=== PATIENT | male | born 1955 | race Caucasian/White ===

== ENCOUNTER 2019-11-05 01:16 | Emergency (ER) | payer OTHER ==
[2019-11-05 02:34] LABS: Absolute Lymphocytes (CBC) 2.4 K/uL (0.7-4.9); Hematocrit 45.9 % (39.6-49.0); Lymphocytes % 26.5 % (15.3-44.8); MPV 8.8 fL (7.6-11.3); RBC Red Blood Cell Count 5.24 M/uL (4.33-5.43)
[2019-11-05] MEDS ORDERED: KETOROLAC 30 MG/ML INJ ONE (02:39)
[2019-11-05] MEDS ORDERED: CLINDAMYCIN 900MG/D5W 900 MG/50 ML IVPB IV ONE (02:39)
[2019-11-05] MEDS ORDERED: NA CHLORIDE 0.9% 500 ML ONE (02:39)
[2019-11-05 03:01] LABS: Uric Acid 5.1 mg/dL (3.5-7.2)
--- NOTE | 2019-11-05 03:12 | EDPHYS ---
Physician Documentation [facility] Name: Marco Winters Age: 64 yrs Sex: Male : 1955 Arrival Date: 11/05/2019 Time: 01:19 Bed 16 Private MD: ED Physician Steven White HPI: 11/04 01:40 This 64 yrs old Male presents to ER via Ambulatory with complaints of Insect cp Bite. 01:40 The patient or guardian complains of pain, swelling, tenderness, erythema. cp 01:40 The complaints affect the right elbow. Context: resulted from possible insect bite. cp Onset: The symptoms/episode began/occurred 2 month(s) ago. Treatment prior to arrival includes: no previous treatment. Associated signs and symptoms: Pertinent negatives: decreased range of motion, fever, numbness. Severity of symptoms: in the emergency department the symptoms are unchanged, despite home interventions. Historical: - Allergies: 01:22 No Known Allergies; jb4 - Home Meds: 01:22 None [Active]; jb4 - PMHx: 01:22 Hernia; jb4 - PSHx: 01:22 Hernia repair; AMIE knee replacement; Hydrocelectomy; back; jb4 - Immunization history:: Adult Immunizations up to date. - Social history:: Smoking status: Patient reports the use of cigarette tobacco products, smokes one-half pack cigarettes per day, Patient/guardian denies using alcohol, street drugs. ROS: 01:45 MS/extremity: Positive for erythema, pain, swelling, tenderness, of the right elbow. cp 01:45 Constitutional: Negative for body aches, chills, fever. cp 01:45 Cardiovascular: Negative for chest pain. 01:45 Respiratory: Negative for cough, shortness of breath, wheezing. 01:45 Abdomen/GI: Negative for abdominal pain, nausea, vomiting, and diarrhea. 01:45 Neuro: Negative for altered mental status, headache, weakness. 01:45 All other systems are negative. Exam: 01:50 Constitutional: The patient appears in no acute distress, alert, awake, non-toxic, well cp developed, well nourished. 01:50 Head/Face: Normocephalic, atraumatic. cp 01:50 Cardiovascular: Rate: normal. 01:50 Respiratory: the patient does not display signs of respiratory distress, Respirations: normal. 01:50 Musculoskeletal/extremity: Extremities: grossly normal except: noted in the right elbow: erythema, pain, swelling, tenderness, ROM: full passive range of motion, in the right elbow, Perfusion: the extremity is normally perfused throughout. Vital Signs: 01:22 BP 138 / 63; Pulse 65; Resp 16; Temp 98.4(O); Pulse Ox 98% on R/A; Weight 108.86 kg jb4 (R); Height 6 ft. 3 in. (190.50 cm) (R); Pain 8/10; 02:30 BP 114 / 60; Pulse 58; Resp 16; Pulse Ox 95% on R/A; jb4 01:22 Body Mass Index 30.00 (108.86 kg, 190.50 cm) jb4 MDM: 01:29 Patient medically screened. cp 02:00 Differential diagnosis: abscess, bursitis, cellulitis, insect bite. cp 03:10 Data reviewed: vital signs, nurses notes, lab test result(s), and as a result, I will cp discharge patient. 03:10 Counseling: I had a detailed discussion with the patient and/or guardian regarding: the cp historical points, exam findings, and any diagnostic results supporting the discharge/admit diagnosis, radiology results, the need for outpatient follow up, a family practitioner, to return to the emergency department if symptoms worsen or persist or if there are any questions or concerns that arise at home. Response to treatment: the patient's symptoms have mildly improved after treatment, and as a result, I will discharge patient. 11/04 01:36 Order name: CBC with Diff; Complete Time: 02:44 cp 11/04 02:44 Interpretation: Normal except: RDW 16.0. cp 11/04 01:36 Order name: BMP; Complete Time: 03:03 cp 11/04 03:03 Interpretation: Normal except: GLUC 113; GFR 87. cp 11/04 01:36 Order name: Uric Acid; Complete Time: 03:03 cp 11/04 03:03 Interpretation: Within normal limits: URIC 5.1. cp 11/04 01:36 Order name: Procalcitonin; Complete Time: 03:17 cp 11/04 03:17 Interpretation: Reviewed. cp 11/04 01:36 Order name: Blood Culture Adult (2) cp 11/04 01:36 Order name: IV; Complete Time: 02:52 cp Administered Medications: 01:37 CANCELLED (Physician Discretion): NS 0.9% 1000 ml IV at 1 bolus Per protocol; 1000 mL cp bolus 02:35 Drug: TORadol - Ketorolac 15 mg Route: IVP; Site: left hand; jb4 03:00 Follow up: Response: No adverse reaction; Pain is decreased jb4 02:35 Drug: NS 0.9% 500 ml Route: IV; Rate: bolus; Site: left hand; jb4 03:05 Follow up: Response: No adverse reaction; IV Status: Completed infusion jb4 02:37 Drug: Clindamycin 900 mg Route: IVPB; Infused Over: 30 mins; Site: left hand; jb4 03:07 Follow up: Response: No adverse reaction; IV Status: Completed infusion jb4 Disposition: 03:15 Chart complete. cp Disposition: 11/05/19 03:11 Discharged to Home. Impression: Cellulitis of right upper limb - elbow. - Condition is Stable. - Discharge Instructions: Cellulitis, Adult, Elbow Bursitis. - Prescriptions for Clindamycin HCl 300 mg Oral Capsule - take 1 capsule by ORAL route every 6 hours for 10 days; 40 capsule. Tramadol 50 mg Oral Tablet - take 1 tablet by ORAL route every 8 hours as needed; 12 tablet. Bactrim DS 800- 160 mg Oral Tablet - take 1 tablet by ORAL route every 12 hours for 10 days; 20 tablet. - Medication Reconciliation Form, Thank You Letter, Antibiotic Education, Prescription Opioid Use form. - Follow up: Private Physician; When: 1 - 2 days; Reason: Recheck today's complaints. - Problem is new. - Symptoms have improved. Addendum: 11/06/2019 04:30 Co-signature as Attending Physician, Steven White MD I agree with the assessment and t w4 plan of care. Signatures: Dispatcher [employer] EDMS Chan Ya PA PA cp Bryson, James, TOMAS RN jb4 Steven White MD MD tw4 Corrections: (The following items were deleted from the chart) 11/04 01:37 01:36 NS 0.9% 1000 ml IV at 1 bolus Per protocol; 1000 mL bolus ordered. cp cp 03:35 03:11 11/05/2019 03:11 Discharged to Home. Impression: Cellulitis of right upper limb - jb4 elbow. Condition is Stable. Prescriptions for Clindamycin HCl 300 mg Oral Capsule - take 1 capsule by ORAL route every 6 hours for 10 days; 40 capsule, Tramadol 50 mg Oral Tablet - take 1 tablet by ORAL route every 8 hours as needed; 12 tablet, Bactrim DS 800-160 mg Oral Tablet - take 1 tablet by ORAL route every 12 hours for 10 days; 20 tablet. and Forms are Medication Reconciliation Form, Thank You Letter, Antibiotic Education, Prescription Opioid Use. Follow up: Private Physician; When: 1 - 2 days; Reason: Recheck today's complaints. Problem is new. Symptoms have improved. cp
--- NOTE | 2019-11-05 03:12 | ER ---
Nurse's Notes [facility] Name: Marco Winters Age: 64 yrs Sex: Male : 1955 Arrival Date: 11/05/2019 Time: : Bed 16 Private MD: Diagnosis: Cellulitis of right upper limb-elbow Presentation: 11/04 01:22 Chief complaint: Patient states: A month ago I thought I had a bite on my right elbow. jb4 It started out as a small cluster of white pimples. Now it is the size of my elbow. It is getting harder, and larger. The pain is now radiating up my arm. Its a burning pain. 01: Coronavirus screen: Client denies travel out of the [place] in the last 14 days. At this jb4 time, the client does not indicate any symptoms associated with coronavirus-19. Ebola Screen: No symptoms or risks identified at this time. Initial Sepsis Screen: Does the patient meet any 2 criteria? No. Patient's initial sepsis screen is negative. Does the patient have a suspected source of infection? No. Patient's initial sepsis screen is negative. Risk Assessment: Do you want to hurt yourself or someone else? Patient reports no desire to harm self or others. Onset of symptoms was October 04, 2019. Transition of care: patient was not received from another setting of care. 01: Method Of Arrival: Ambulatory jb4 Acuity: DIANDRA 4 jb4 Historical: - Allergies: : No Known Allergies; jb4 - Home Meds: : None [Active]; jb4 - PMHx: : Hernia; jb4 - PSHx: : Hernia repair; AMIE knee replacement; Hydrocelectomy; back; jb4 - Immunization history:: Adult Immunizations up to date. - Social history:: Smoking status: Patient reports the use of cigarette tobacco products, smokes one-half pack cigarettes per day, Patient/guardian denies using alcohol, street drugs. Screenin: Abuse screen: Denies threats or abuse. Nutritional screening: No deficits noted. jb4 Tuberculosis screening: No symptoms or risk factors identified. Fall Risk None identified. Assessment: : General: Appears in no apparent distress. uncomfortable, Behavior is calm, cooperative, jb4 appropriate for age. Pain: Complains of pain in right elbow Pain radiates to anterior aspect of right shoulder Pain currently is 8 out of 10 on a pain scale. Quality of pain is described as burning, Pain began 1 month ago Is continuous. Neuro: Level of Consciousness is awake, alert, obeys commands, Oriented to person, place, time, situation. Cardiovascular: Patient's skin is warm and dry. Respiratory: Airway is patent Respiratory effort is even, unlabored, Respiratory pattern is regular, symmetrical. GI: No signs and/or symptoms were reported involving the gastrointestinal system. : No signs and/or symptoms were reported regarding the genitourinary system. EENT: No signs and/or symptoms were reported regarding the EENT system. Derm: Skin is intact, Skin is pink, warm \T\ dry. There is a reddened area noted to the posterior right elbow. The area is warm to the touch and tender. Musculoskeletal: Circulation, motion, and sensation intact. Range of motion: intact in all extremities. 02:30 Reassessment: Pt remains alert and oriented x4. Is currently standing at the side of [facility] the bed holding his right elbow. Pt returned to bed for IV initiation. respirations remain even and unlabored. There is no change in pain or appearance of the affected area. Vital Signs: 01:22 BP 138 / 63; Pulse 65; Resp 16; Temp 98.4(O); Pulse Ox 98% on R/A; Weight 108.86 kg jb4 (R); Height 6 ft. 3 in. (190.50 cm) (R); Pain 8/10; 02:30 BP 114 / 60; Pulse 58; Resp 16; Pulse Ox 95% on R/A; jb4 01:22 Body Mass Index 30.00 (108.86 kg, 190.50 cm) [facility] ED Course: 01:19 Patient arrived in ED. cl3 01:22 Arm band placed on right wrist. jb4 01:22 Patient has correct armband on for positive identification. Bed in low position. Call [facility] light in reach. Side rails up X 1. Pulse ox on. NIBP on. 01:23 Chan Ya PA is PHCP. cp 01:23 Steven White MD is Attending Physician. cp 01:26 Herbert Velez, TOMAS is Primary Nurse. jb4 01:52 Triage completed. jb4 02:20 Inserted saline lock: 20 gauge in left hand, using aseptic technique. Blood collected. jb4 02:20 Initial lab(s) drawn, by me, sent to lab. First set of blood cultures drawn by me. jb4 02:35 Second set of blood cultures drawn by me. jb4 Administered Medications: 01:37 CANCELLED (Physician Discretion): NS 0.9% 1000 ml IV at 1 bolus Per protocol; 1000 mL cp bolus 02:35 Drug: TORadol - Ketorolac 15 mg Route: IVP; Site: left hand; jb4 03:00 Follow up: Response: No adverse reaction; Pain is decreased jb4 02:35 Drug: NS 0.9% 500 ml Route: IV; Rate: bolus; Site: left hand; jb4 03:05 Follow up: Response: No adverse reaction; IV Status: Completed infusion jb4 02:37 Drug: Clindamycin 900 mg Route: IVPB; Infused Over: 30 mins; Site: left hand; jb4 03:07 Follow up: Response: No adverse reaction; IV Status: Completed infusion jb4 Outcome: 03:11 Discharge ordered by . cp 03:35 Patient left the ED. jb4 Signatures: Chan Ya PA PA cp Bryson, James, RN RN jb4 Cierra Garcia cl3
[2019-11-05 03:42] VITALS: TEMP 98.4
[2019-11-05 03:43] VITALS: BP 114/60; O2SAT 95
== END 2019-11-05 03:35 | disposition home or self-care (01) ==
LOC: ER 01:16
DX: L03.113 Cellulitis of right upper limb (principal); F17.210 Nicotine dependence, cigarettes, uncomplicated
CPT/HCPCS: 87040 ×2; 85025; 80048; 36415; 84550; 84145; J7040; 96365; 96375; 99284